=== PATIENT | male | born 1985 | race Native Hawaiian/Other Pacific Islander ===

== ENCOUNTER 2022-01-09 17:28 | Emergency (ER) | payer OTHER ==
[~2022-01-09] VITALS: Ht 185.4 cm; Wt 68.0 kg
[2022-01-09 18:40] LABS: PLATELET COUNT 239 K/uL (142-355)
[2022-01-09 18:48] LABS: POTASSIUM 3.5 mmol/L (3.6-5.2)
[2022-01-09 19:21] VITALS: BP 117/73; TEMP 98.6
== END 2022-01-09 19:12 | disposition home or self-care (01) ==
LOC: ED 17:28
PROVIDERS: Hospitalist
DX: J18.9 Pneumonia, unspecified organism (principal); F17.210 Nicotine dependence, cigarettes, uncomplicated; Z20.822 Contact with and (suspected) exposure to COVID-19
CPT/HCPCS: 36415; 80053; 85027; 87502; 87635; 87651; 96372; 99283; J0696; J2930; U0003

== ENCOUNTER 2022-01-18 11:34 | Emergency (ER) | payer OTHER ==
[~2022-01-18] VITALS: Ht 185.4 cm; Wt 68.0 kg
[2022-01-18 11:42] VITALS: TEMP 98.1
[2022-01-18 13:07] VITALS: BP 122/82
== END 2022-01-18 13:11 | disposition home or self-care (01) ==
LOC: ED 11:34
PROC: 2W3CX1Z Immobilization of Right Lower Arm using Splint (ICD-10-PCS; principal; 2022-01-18)
DX: S62.396A Other fracture of fifth metacarpal bone, right hand, initial encounter for closed fracture (principal); W11.XXXA Fall on and from ladder, initial encounter; Y92.89 Other specified places as the place of occurrence of the external cause
CPT/HCPCS: 96372; 99283; J1885

== ENCOUNTER 2022-02-10 15:51 | Observation (INO) | payer OTHER ==
[2022-02-10] VITALS (9 sets, daily range): BP systolic 110–140; BP diastolic 75–92; TEMP 97.1–97.6; Ht 188 cm; Wt 66.2 kg
[~2022-02-10] VITALS: Ht 188 cm; Wt 66.2 kg
[2022-02-10 16:12] LABS: PLATELET COUNT 308 K/uL (142-355)
[2022-02-10 16:21] LABS: POTASSIUM 2.5 mmol/L (3.6-5.2)
--- NOTE | 2022-02-10 19:36 | NUR ---
RECEIVED REPORT FROM JHONY IN ER.
--- NOTE | 2022-02-10 19:50 | NUR ---
PATIENT ARRIVED ON UNIT TO ROOM 1111 VIA WHEELCHAIR FROM ER. ALERT AND ORIENTED CLIENT AMBULATED TO BED. PATIENT WEARING SHORTS AND SANDLES, NO SHIRT. CELL PHONE IN POSSESSION. CLIENT IS RUBBING FACE, ANSWERS QUESTIONS APPROPRIATELY. ORIENTED CLIENT TO UNIT AND FACILITY.
--- NOTE | 2022-02-10 23:22 | NUR ---
PATIENT STATED THAT HE IS FEELING ANXIOUS, SEE MAR FOR ADMIN. REPORTED LESS ANXIOUS THAN ON ADMINSSION.
--- NOTE | 2022-02-10 23:30 | NUR ---
PATIENT OBSERVED WALKING DOWN MOSS, INSTRUCTED AND EDUCATED CLIENT OF POLICY OF REMAINING IN ROOM. PROVIDED CLIENT WITH DRINK.
[2022-02-11] VITALS: BP 129/75; TEMP 97.6
--- NOTE | 2022-02-11 00:10 | NUR ---
PATIENT FOUND OUTSIDE OF THE EXTERIOR DOORS. EXPLAINED TO CLIENT THE POLICY OF STAYING IN ROOM. CLIENT STATED THAT HE WANTED TO LEAVE TO GET A CIGARETTE, EDUCATED CLIENT OF SMOKING POLICY AND THAT HE COULD LEAVE HOWEVER IT WOULD BE AGAINST MEDICAL ADVICE. EXPLAINED THAT HIS POTASSIUM LAB VALUES WERE CRITICAL AND ENCOURAGED CLIENT TO STAY FOR TREATMENT, THAT WE COULD APPLY A NICOTINE PATCH. CLIENT AGREED TO RECEIVE TREATMENT AND STAY IN ROOM.
--- NOTE | 2022-02-11 00:25 | NUR ---
CLIENT WALKED TO NURSES STATION, STATED THAT HE WANTED TO LEAVE. CLIENT HAD REMOVED IV ACCESS AND TELE UNIT. RE-EDUCATED CLIENT THAT HE WOULD BE LEAVING AGAINST MEDICAL ADVICE AND HAD CRITICAL LAB VALUES AND WOULD LIKELY REQUIRED ADDITIONAL TREATMENT. CLIENT VERBALIZED UNDERSTANDING AND SIGNED "AGAINST MEDICAL ADVICE FORM"NOTIFIED DR QUINONES OF CLIENT'S REQUEST TO LEAVE. RECEIVED ORDER TO RELEASE CLIENT TO THE CARE OF SOMEONE. CLIENT CALLED HIS SPOUSE TO PICK HIM UP. AT 12:30 CLIENT NOTIFIED STAFF THAT HIS RIDE WAS HERE AT ADMISSIONS. D/C CLIENT FROM UNIT VIA WHEELCHAIR BY THIS NURSE AND PCT. AT THE ADMISSION EXTERIOR DOORS, CLIENT JUMPED UP FROM WHEELCHAIR AND STARTED RUNNING AWAY, HOLDING HIS PHONE TO EAR AND YELLED "SHE IS AT THE [place] [facility] RIGHT DOWN THERE". CLIENT IS IN POSSESSION OF BELONGINGS, CLIENT MADE INFORMED DECISION TO LEAVE AGAINST MEDICAL ADVICE.
== END 2022-02-11 00:30 | disposition left against medical advice (07) ==
LOC: ED 15:51 → MED/SURG 18:26
PROVIDERS: Emergency Medicine; ADMIT Internal Medicine; ATTEND Internal Medicine
DX: E87.6 Hypokalemia (principal); R00.0 Tachycardia, unspecified; F15.10 Other stimulant abuse, uncomplicated; F12.10 Cannabis abuse, uncomplicated; R06.02 Shortness of breath
CPT/HCPCS: 80053; 80143; 80179; 80307; 80320; 81002; 84484; 85027; 87635; 93005; 96360; 96361; 96365; 96366; 96375; 99220; 99284; G0378; J2060; U0003

== ENCOUNTER 2023-08-22 12:10 | Emergency (ER) | payer OTHER ==
[~2023-08-22] VITALS: Ht 188 cm; Wt 59.0 kg
[2023-08-22 12:13] VITALS: TEMP 97.1
[2023-08-22 13:22] LABS: PLATELET COUNT 255 K/uL (142-355)
[2023-08-22 13:33] LABS: POTASSIUM 3.6 mmol/L (3.6-5.2)
[2023-08-22 15:00] VITALS: BP 115/70
== END 2023-08-22 16:03 | disposition home or self-care (01) ==
LOC: ED 12:10
PROVIDERS: Family Medicine
DX: R10.9 Unspecified abdominal pain (principal); R19.7 Diarrhea, unspecified; R53.83 Other fatigue; R63.4 Abnormal weight loss; E86.0 Dehydration; R63.0 Anorexia; F14.10 Cocaine abuse, uncomplicated; F12.10 Cannabis abuse, uncomplicated; F17.210 Nicotine dependence, cigarettes, uncomplicated
CPT/HCPCS: 36415; 80053; 80307; 81002; 82150; 83630; 83690; 85027; 86140; 87015; 87045; 87328; 87329; 87899; 96361; 96374; 99284; J2405